=== PATIENT | male | born 1985 | race Two or more races ===

== ENCOUNTER 2017-02-21 11:49 | Emergency (ER) | payer BC ==
--- NOTE | 2017-02-21 12:31 | EDM.PDOC ---
ED HPI GENERAL MEDICAL PROBLEM - General Chief Complaint: Abdominal Pain Stated Complaint: LT SIDE PAIN Time Seen by Provider: 02/21/17 11:57 Source of Information: Reports: Patient History Limitations: Reports: No Limitations - History of Present Illness INITIAL COMMENTS - FREE TEXT/NARRATIVE: The patient states that he has had left-sided abdominal pain on and off for the past 4 weeks. He has not identified any modifiers. He has had nausea, but no emesis. He states that he had diarrhea today, although has not had diarrhea recently. No recent constipation. No urinary symptoms. The patient also reports that he feels hot at night, although he has not checked his temperature. Here in the ED, the patient is afebrile. The patient states that he has taken a couple of Advil on some days, but nothing regularly. The patient states that he was at the [facility] yesterday, 02/20/2017. Paperwork that he brought with him today indicates that a CBC, CMP, and amylase were obtained, but no results are given. The patient states that he was told that his pancreas might be inflamed, and is to follow-up with another doctor - he is not sure who that is - this 02/24/2017. The patient now presents to the ED, however, because he is concerned that if his pancreas is inflamed, that he needs some sort of treatment immediately. The patient does not have a PCP. Bilateral Lower Abdomen Pain Score (Numeric/FACES): 3 - Related Data Allergies Allergy/AdvReac Type Severity Reaction Status Date / Time No Known Allergies Allergy Verified 02/21/17 12:02 Home Meds: Home Meds . [No Known Home Meds] 02/21/17 [History] Past Medical History - Past Health History Medical/Surgical History: Denies Medical/Surgical History Social & Family History - Tobacco Use Smoking Status *Q: Never Smoker Second Hand Smoke Exposure: No - Caffeine Use Caffeine Use: Reports: None - Alcohol Use Alcohol Use History: No - Recreational Drug Use Recreational Drug Use: No - Living Situation & Occupation Living situation: Reports: Single, Other (with friends) Occupation: Employed (Construction) ED ROS GENERAL - Review of Systems Review Of Systems: ROS reveals no pertinent complaints other than HPI. ED EXAM, GI/ABD - Physical Exam Exam: See Below Exam Limited By: No Limitations General Appearance: Alert, WD/WN, No Apparent Distress Eyes: Bilateral: Normal Appearance, EOMI Ears: Normal External Exam, Hearing Grossly Normal Nose: Normal Inspection, No Blood Throat/Mouth: Normal Inspection, Normal Lips, Normal Voice, No Airway Compromise Head: Atraumatic, Normocephalic Neck: Normal Inspection, Full Range of Motion Respiratory/Chest: No Respiratory Distress, Lungs Clear, Normal Breath Sounds, No Accessory Muscle Use Cardiovascular: Normal Peripheral Pulses, Regular Rate, Rhythm, No Gallop, No JVD, No Murmur, No Rub GI/Abdominal Exam: Normal Bowel Sounds, Soft, No Organomegaly, No Distention, No Abnormal Bruit, No Mass, Tender (Minimal, to the far left side. Nontender elsewhere.) (Male) Exam: Deferred Rectal (Males) Exam: Deferred Back Exam: Normal Inspection, Full Range of Motion, NT Extremities: Normal Inspection, Normal Range of Motion, No Pedal Edema, Normal Capillary Refill Neurological: Alert, Oriented, Normal Cognition, No Motor/Sensory Deficits Psychiatric: Normal Affect Skin Exam: Warm, Dry, Intact, Normal Color, No Rash Course - Vital Signs Last Recorded V/S: Last Vital Signs Temp 36.4 C 02/21/17 11:56 Pulse 97 02/21/17 11:56 Resp 18 02/21/17 11:56 BP 124/81 02/21/17 11:56 Pulse Ox 98 02/21/17 11:56 - Orders/Labs/Meds Orders: Active Orders 24 hr Category Date Time Status Abdomen 1V Upright [CR] Stat Exams 02/21/17 12:29 Taken Labs: Laboratory Tests 02/21/17 02/21/17 02/21/17 Range/Units 12:39 12:39 12:45 WBC 7.25 (4.23-9.07) K/mm3 RBC 5.58 (4.63-6.08) M/mm3 Hgb 16.7 (13.7-17.5) gm/L Hct 46.4 (40.1-51.0) % MCV 83.2 (79.0-92.2) fl MCH 29.9 (25.7-32.2) pg MCHC 36.0 H (32.2-35.5) g/dl RDW Std Deviation 39.1 (35.1-43.9) fL Plt Count 225 (163-337) K/mm3 MPV 11.1 (9.4-12.3) fl Neutrophils % (Manual) 56 (40-60) % Band Neutrophils % 0 (0-10) % Lymphocytes % (Manual) 38 (20-40) % Atypical Lymphs % 0 % Monocytes % (Manual) 5 (2-10) % Eosinophils % (Manual) 0 L (0.8-7.0) % Basophils % (Manual) 1 (0.2-1.2) Platelet Estimate Adequate RBC Morph Comment Normal Sodium 139 (136-145) mEq/L Potassium 3.8 (3.5-5.1) mEq/L Chloride 103 (98-107) mEq/L Carbon Dioxide 25 (21-32) mEq/L Anion Gap 14.8 (5-15) BUN 11 (7-18) mg/dL Creatinine 0.9 (0.7-1.3) mg/dL Est Cr Clr Drug Dosing 95.71 mL/min Estimated GFR (MDRD) > 60 (>60) mL/min BUN/Creatinine Ratio 12.2 L (14-18) Glucose 123 H (74-106) mg/dL Calcium 9.4 (8.5-10.1) mg/dL Total Bilirubin 0.7 (0.2-1.0) mg/dL AST 36 (15-37) U/L ALT 86 H (16-63) U/L Alkaline Phosphatase 91 (46-116) U/L Total Protein 8.4 H (6.4-8.2) g/dl Albumin 4.6 (3.4-5.0) g/dl Globulin 3.8 gm/dL Albumin/Globulin Ratio 1.2 (1-2) Lipase 152 (73-393) U/L Urine Color Yellow (Yellow) Urine Appearance Clear (Clear) Urine pH 7.0 (5.0-8.0) Ur Specific [place] 1.015 (1.005-1.030) Urine Protein Negative (Negative) Urine Glucose (UA) Negative (Negative) Urine Ketones Negative (Negative) Urine Occult Blood Negative (Negative) Urine Nitrite Negative (Negative) Urine Bilirubin Negative (Negative) Urine Urobilinogen 0.2 (0.2-1.0) Ur Leukocyte Esterase Negative (Negative) Urine RBC Not seen (0-5) /hpf Urine WBC 0-5 (0-5) /hpf Ur Epithelial Cells Not seen (0-5) /hpf Urine Bacteria Not seen (FEW) /hpf Urine Mucus Not seen (FEW) /hpf - Re-Assessments/Exams Free Text/Narrative Re-Assessment/Exam: 02/21/17 12:30 The patient complains of left-sided abdominal pain on and off for the past 4 weeks. His abdominal exam today is benign - his abdomen is soft, with normal bowel sounds, and minimal, if any tenderness to the left side of the abdomen. Under the circumstances, I do not believe that an emergency CT scan of the abdomen would be in the patient's best interest, due to the radiation exposure, however, I have ordered blood work, a urinalysis, and an upright abdominal radiograph, and if there are abnormalities, I may reconsider a CT scan. 02/21/17 12:37 Upright abdominal radiograph appears to demonstrate some stool in the right colon, but, otherwise, a nonspecific bowel gas pattern. Formal read per the Radiologist pending. 02/21/17 13:31 Test results discussed with the patient. Today's workup is entirely unremarkable , and does not swing the cause of the patient's symptoms. The patient seemed unsure when I told him that his lipase (pancreas number) was normal, and I needed to reassure him several times that he does not have pancreatitis. I am recommending that he follow-up with Dr. Smyth for further evaluation, and the patient has agreed. Departure - Departure Time of Disposition: 13:32 Disposition: Home, Self-Care 01 Condition: Good Clinical Impression: Abdominal pain of unknown etiology - Discharge Information Referrals: PCP,None [Primary Care Provider] - Lazarus Smyth [Physician] - Forms: ED Department Discharge Additional Instructions: You were seen in the emergency room for left-sided abdominal pain on and off for the past 4 weeks. Workup in the ER included blood work, a urinalysis, and abdominal x-rays. Your entire workup was unremarkable, and does not explain the cause of your pain. Further workup is necessary. Please follow-up with Dr. Smyth as a PCP, who can order further evaluation. If any other problems, please do not hesitate to return to the ER. - My Orders Last 24 Hours: My Active Orders 02/21/17 12:29 Abdomen 1V Upright [CR] Stat - Assessment/Plan Last 24 Hours: My Active Orders 01/16/18 12:29 Abdomen 1V Upright [CR] Stat
--- NOTE | 2017-02-21 13:47 | CR ---
Abdomen: Upright view of the abdomen was obtained. Scattered gas within colon and small bowel is noted. This is felt to be within normal limits at this time. No free air is seen. Minimal degenerative endplate spurring is noted within the spine. No abnormal calcifications are seen. Impression: 1. Incidental findings. Diagnostic code #2
== END 2017-02-21 13:44 | disposition home or self-care (01) ==
LOC: JD.ED 11:49
DX: R10.31 Right lower quadrant pain (principal); R10.32 Left lower quadrant pain
CPT/HCPCS: 36415; 74018; 74018-26; 80053; 81001; 83690; 85025; 99283; 99284